=== PATIENT | male | born 1980 | race Caucasian/White ===

== ENCOUNTER 2017-04-05 19:04 | Emergency (ER) | payer SELFPAY ==
[~2017-04-05] VITALS: Ht 177.8 cm; Wt 92.5 kg
[2017-04-05 19:28] VITALS: Ht 177.8 cm; Wt 92.5 kg
--- NOTE | 2017-04-05 22:59 | ERD ---
ER Documentation Chief Complaint Date/Time DATE: 04/05/17 TIME: 22:55 Chief Complaint c/o left sided groin and abdominal pain x 2 yrs. HPI This 36-year-old male patient presents to emergency department for chronic left testicle pain radiating to left ABD x 2 years. pt has seen MD in the past, has a US which was normal per patient's report. Complaint of dysuria and hematuria was seen at a clinic a month ago found hematuria at that time, received ABX, took full course of medication x 7 days 4 weeks ago. sexually activity on partner ROS All systems reviewed and are negative except as per history of present illness. PMhx/Soc Medical and Surgical Hx: pt denies Surgical Hx Hx Miscellaneous Medical Probl: Yes (Thyroid) Hx Alcohol Use: No Hx Substance Use: No Hx Tobacco Use: Yes Smoking Status: Current every day smoker Physical Exam Vitals Vital Signs Date Time Temp Pulse Resp B/P Pulse Ox O2 Delivery O2 Flow Rate FiO2 04/05/17 19:28 98.7 84 18 140/83 95 Vitals stable, triage notes reviewed Physical Exam Const: Well-nourished well-hydrated well-appearing 36-year-old male patient no acute distress Head: Eyes: ENT: Normal External Ears, Nose and Mouth, mucous membranes moist Neck: Resp: Traces even and unlabored, no respiratory distress Cardio: Abd: ,soft, left lower abdominal tenderness, proximal to pelvis on Male Genitalia: Normal appearing uncircumcised penis without lesion, discharge , or ulcers, testicles descended, right testicle tender to palpation with no palpable mass, left testicle with suspected fluid, nontender no mass. Skin: Back: No midline or flank tenderness, no CVA tenderness Ext: Neur: Awake and alert Psych: Normal Mood and Affect Results 24 hrs Laboratory Tests Test 04/05/17 23:33 Urine Color YELLOW Urine Clarity CLEAR Urine pH 5.0 Urine Specific [place] 1.029 Urine Ketones TRACEmg/dL Urine Nitrite NEGATIVEmg/dL Urine Bilirubin NEGATIVEmg/dL Urine Urobilinogen NEGATIVEmg/dL Urine Leukocyte Esterase NEGATIVELeu/ul Urine Hemoglobin NEGATIVEmg/dL Urine Glucose NEGATIVEmg/dL Urine Total Protein NEGATIVEmg/dl Current Medications Medications (Trade) Dose Ordered Sig/Hood Route PRN Reason Start Time Stop Time Status Last Admin Dose Admin Ibuprofen (Motrin) 600 mg ONCE ONCE PO 04/05/17 23:30 04/05/17 23:31 DC 04/05/17 23:32 Urinalysis negative for evidence of infection, no leukocytosis, microscopic hematuria, or nitrates Procedures/MDM PROCEDURE: Ultrasound of the scrotum. CLINICAL INDICATION: Pain. TECHNIQUE: Ultrasound of the scrotum was performed utilizing color Doppler flow imaging COMPARISON: There are no similar studies submitted for comparison. FINDINGS: Right testis: Size (cm): 4.3 x 2.2 x 3.2 Echotexture: Normal Doppler flow: Present Epididymal head: Unremarkable Hydrocele: None Varicocele: None Left testis: Size (cm): 4.2 x 2.3 x 3 Echotexture: Normal Doppler flow: Present Epididymal head: Unremarkable Hydrocele: None Varicocele: None IMPRESSION: No evidence of testicular torsion. RPTAT: HIKT .Gene Waggoner MD, MD Date Time Electronically viewed and signed by .Geen Waggoner MD, on 04/06/2017 00:34 This 36-year-old male patient presents to emergency department for evaluation of chronic right testicular pain radiating up into the stomach. Patient has been seen in the past, has obtain ultrasounds and been treated with no improvement of symptoms. Patient reports his last antibiotics was chasing twice a day for 7 days given to him from a clinic with no improvement of symptoms. Patient denies any injury, reports that he is sexually active with one partner. Denies any penile discharge, sores or lesions. Emergency room course today includes history, physical exam, urinalysis, and testicular ultrasound; radiology findings no evidence of testicular torsion, hydrocele or varicocele, plan to discharge patient home with Bactrim 1 tab p.o. twice daily 7 days, Naprosyn 500 mg 1 tab p.o. twice daily 10 days, rest, testicular elevation, follow-up with [facility] care physician for referral to urology or call any of the urologist listed on handout. Patient is stable with no new complaints during ER course, clinically there is no current evidence to suggest STI, sepsis, acute abdomen, testicular torsion, idiopathic scrotal edema, infected hydrocele, strangulated hernia, testicular tumor or any other emergent condition appearing to require further evaluation or hospitalization. I feel the patient is stable for discharge at this time. I have discussed results, examination findings, the treatment plan with the patient and family present prior to discharge. Indications for emergent reevaluation, side effects of medication were also discussed. All questions were answered. Patient verbalizes understanding and agrees with plan of care. Departure Diagnosis: Primary Impression: Pain in testicle Condition: Good Patient Instructions: Treating Epididymitis and Orchitis, What Are Epididymitis and Orchitis? Referrals: RYAN MICHAEL MD,JIMI SCHUSTER,LOBO ALANIZ,ROMAN WEISS,NATHAN RUFFIN= OCTAVIO DE LA TORRE NP, SOROUSH ADAM SHAPIRO,CALVIN PIERSON MD, M.D. Additional Instructions: Thank you for for coming to [facility] for your care today. Please ask your nurse or provider if you have questions about your care today and do not leave until all your questions have been answered. Please use any medications given as directed and follow-up with your doctor (or the doctor you were referred to) in the next 2-3 days. If you do not have a primary care doctor you may follow up at the [facility] (listed below). You may also use motrin and tylenol as needed for fever and/or pain unless instructed otherwise by your provider or nurse. Indications for more urgent follow-up have been discussed, but you may return to the Emergency Department at ANY time for any worrisome or worsening symptoms. If you have abdominal pain, please know that no test or exam you received is perfect and you should follow up within 8 hours for continued pain. If you had any imaging studies today, such as an X-Ray or CT Scan, these studies will be reviewed later by a radiologist. You will be called if there are important findings that were not identified today, so make sure the contact information you provided at registration is correct. If you received any narcotic pain control medicine today, such as Vicodin, Morphine or Dilaudid, your coordination and judgment may be affected for a number of hours. Please do not drive or operate heavy machinery, and you may want someone to assist you at home. If you were given a prescription for narcotic medication, be aware that it is very addictive- use sparingly and only if necessary. ROGER VELÁZQUEZ Apr 05, 2017 22:59
[2017-04-05] MEDS ORDERED: IBUPROFEN 600 MG TAB PO ONE (23:30)
[2017-04-05 23:56] LABS: ADD UMIC NO; UR ASCORBIC ACID 40 mg/dL (NEGATIVE); UR BILIRUBIN (Dip) NEGATIVE (NEGATIVE); UR BLOOD (Dip) NEGATIVE (NEGATIVE); UR CLARITY CLEAR (CLEAR); UR COLOR YELLOW (YELLOW); UR GLUCOSE (Dip) NEGATIVE (NEGATIVE); UR KETONES (Dip) TRACE mg/dL (NEGATIVE); UR LEUKOCYTE ESTERASE (Dip) NEGATIVE Leu/ul (NEGATIVE); UR NITRITE (Dip) NEGATIVE (NEGATIVE); UR SPECIFIC GRAVITY (Dip) 1.029 (1.003-1.030); UR TOTAL PROTEIN (Dip) NEGATIVE (NEGATIVE); UR UROBILINOGEN (Dip) NEGATIVE (NEGATIVE)
--- NOTE | 2017-04-06 00:34 | RADRPT ---
PROCEDURE: Ultrasound of the scrotum. CLINICAL INDICATION: Pain. TECHNIQUE: Ultrasound of the scrotum was performed utilizing color Doppler flow imaging COMPARISON: There are no similar studies submitted for comparison. FINDINGS: Right testis: Size (cm): 4.3 x 2.2 x 3.2 Echotexture: Normal Doppler flow: Present Epididymal head: Unremarkable Hydrocele: None Varicocele: None Left testis: Size (cm): 4.2 x 2.3 x 3 Echotexture: Normal Doppler flow: Present Epididymal head: Unremarkable Hydrocele: None Varicocele: None IMPRESSION: No evidence of testicular torsion. RPTAT: HIKT .Gene Waggoner MD, MD Date Time Electronically viewed and signed by .Gene Waggoner MD, on 04/06/2017 00:34 .T/
[2017-04-06] MEDS ORDERED: NAPR-260 PO (03:00)
[2017-04-06] MEDS ORDERED: SULF1TAB31 PO (03:00)
[2017-04-06 03:19] VITALS: BP 124/79; PULSE 55; RESP 16
== END 2017-04-06 03:20 | disposition home or self-care (01) ==
LOC: FTE 19:04
DX: N50.812 Left testicular pain (principal); F17.210 Nicotine dependence, cigarettes, uncomplicated
CPT/HCPCS: 76870; 81003; 87591

== ENCOUNTER 2017-05-13 13:31 | Emergency (ER) | payer SELFPAY ==
[~2017-05-13] VITALS: Ht 170.2 cm; Wt 91.5 kg
[~2017-05-13 13:31] MED LIST: NAPR-260 PO; SULF1TAB31 PO
[2017-05-13 13:38] VITALS: Ht 170.2 cm; Wt 91.5 kg
[2017-05-13] MEDS ORDERED: HYDROCODONE/APAP (5/325) TAB PO ONE (17:00)
[2017-05-13 17:22] LABS: ADD UMIC YES; UR ASCORBIC ACID 20 mg/dL (NEGATIVE); UR BILIRUBIN (Dip) NEGATIVE (NEGATIVE); UR BLOOD (Dip) 1+ mg/dL (NEGATIVE); UR CLARITY SLIGHTLY CLOUDY (CLEAR); UR COLOR YELLOW (YELLOW); UR GLUCOSE (Dip) NEGATIVE (NEGATIVE); UR KETONES (Dip) NEGATIVE (NEGATIVE); UR LEUKOCYTE ESTERASE (Dip) NEGATIVE Leu/ul (NEGATIVE); UR MUCUS FEW /HPF (NONE SEEN); UR NITRITE (Dip) NEGATIVE (NEGATIVE); UR RBC 8 /HPF (0-5); UR SPECIFIC GRAVITY (Dip) 1.026 (1.003-1.030); UR TOTAL PROTEIN (Dip) NEGATIVE (NEGATIVE); UR UROBILINOGEN (Dip) NEGATIVE (NEGATIVE)
--- NOTE | 2017-05-13 17:50 | RADRPT ---
PROCEDURE: CT Abdomen and Pelvis without contrast. CLINICAL INDICATION: Abdominal pain TECHNIQUE: CT scan of the abdomen and pelvis was performed on a multidetector high-resolution CT s canner without intravenous contrast. Coronal and sagittal reformatted images were obtained from the axial source images. Images were reviewed on a high-resolution PACS workstation. The total exam CTD I equals 13mGy and the total exam DLP equals 901mGy-cm. One or more of the following dose reduction techniques were used: Automated exposure control, Adjustment of the mA and/or kV according to patien t size, and/or use of iterative reconstruction technique. DICOM images are available. COMPARISON: None. FINDINGS: Evaluation of the solid organs is limited given the lack of intravenous contrast administration. The lung bases are clear. The liver, pancreas, spleen, and adrenals are grossly unremarkable. No focal pericholecystic inflammatory changes. No hydronephrosis. No renal or ureteral stone. No bowel obstruction. Normal-caliber appendix. Colonic diverticula with sravanthi-sigmoid colon inflamm atory stranding. No significant retroperitoneal lymphadenopathy, ascites or evidence of pneumoperitoneum. Small fat c ontaining left inguinal hernia. IMPRESSION: Acute sigmoid colonic diverticulitis. No renal or ureteral stone. Normal-caliber appendix. No evidence of bowel obstruction. RPTAT: AA .Zackery Chavez MD, Date Time Electronically viewed and signed by .Zackery Chavez MD, on 05/13/2017 17:50 .T/
--- NOTE | 2017-05-13 17:55 | RADRPT ---
PROCEDURE: US Scrotum. CLINICAL INDICATION: Bilateral chronic testicular pain TECHNIQUE: Multiple sonographic images of the scrotal region were obtained with grayscale, color-fl ow, and Doppler imaging COMPARISON: Scrotal sonogram 04/05/2017 FINDINGS: Physiologic amount of fluid surrounds both testicles. The right testicle measures 4.0 x 2.2 x 3.2 cm; the left testicle measures 4.3 x 2.1 x 2.9 cm. The testicles are within normal limits in size, have unremarkable echogenicity, and are located in the s crotum. Intratesticular blood flow is within normal limits. The epididymal complexes are unremarkable. No varicocele detected. The scrotal wall is unremarkable. No other significant changes seen. IMPRESSION: 1. Unremarkable scrotal sonogram. Given the clinical history, intermittent testicular torsion is in the differential diagnosis. RPTAT: TT Physician Daron Date Time Electronically viewed and signed by Physician Daron on 05/13/2017 17:55 RADHA/
--- NOTE | 2017-05-13 18:04 | ERD ---
ER Documentation Chief Complaint Chief Complaint llq abdominal pain radiating to the groin with painfull urination HPI This is a 36-year-old male who presents the emergency department today complaining of left-sided abdominal pain and pain with urination for the past 15 days. Patient states that he takes Flomax for the pain and it resolves her period of time and then it comes back. States he has had similar problems in the past and had taken antibiotics for "an infection in his urine". Denies any fevers or chills, vomiting. ROS All systems reviewed and are negative except as per history of present illness. Medications Home Meds Active Scripts Docusate Sodium* (Colace*) 100 Mg Capsule, 100 MG PO TID, #30 CAP Prov:MEGHAN HINOJOSA PA-C 05/13/17 Polyethylene Glycol* (Miralax*) 17 Gm Powd.pack, 17 GM PO DAILY, #14 Prov:MEGHAN HINOJOSA PA-C 05/13/17 Metronidazole* (Flagyl*) 500 Mg Tablet, 500 MG PO TID for 10 Days, TAB Prov:MEGHAN HINOJOSA PA-C 05/13/17 Ciprofloxacin Hcl* (Ciprofloxacin Hcl*) 500 Mg Tablet, 500 MG PO BID for 10 Days , TAB Prov:MEGHAN HINOJOSA PA-C 05/13/17 Naproxen* (Naprosyn*) 500 Mg Tablet, 500 MG PO BID Y for PAIN AND/OR INFLAMMATION, #30 TAB Prov:MEGHAN HINOJOSA PA-C 05/13/17 Tramadol HCl (Tramadol HCl) 50 Mg Tablet, 50 MG PO Q4 Y for PAIN, #20 TAB Prov:MEGHAN HINOJOSA PA-C 05/13/17 Naproxen* (Naprosyn*) 500 Mg Tablet, 500 MG PO BID Y for PAIN AND/OR INFLAMMATION for 10 Days, #20 TAB Prov:EBER,ROGER 04/06/17 Sulfamethoxazole/Trimethoprim* (Bactrim Ds* Tablet) 1 Each Tablet, 1 TAB PO BID for 7 Days, #14 TAB Prov:EBER,ROGER 04/06/17 Allergies Allergies: Coded Allergies: No Known Allergy (Unverified , 05/13/17) PMhx/Soc Hx Miscellaneous Medical Probl: Yes (Thyroid) Hx Alcohol Use: No Hx Substance Use: No Hx Tobacco Use: Yes Physical Exam Vitals Vital Signs Date Time Temp Pulse Resp B/P Pulse Ox O2 Delivery O2 Flow Rate FiO2 05/13/17 13:38 99.2 100 18 131/86 97 Physical Exam Const: NAD Head: Atraumatic Eyes: Normal Conjunctiva ENT: Normal External Ears, Nose and Mouth. Neck: Full range of motion..~ No meningismus. Resp: Clear to auscultation bilaterally Cardio: Regular rate and rhythm, no murmurs Abd: Soft,left lower quadraunt tenderness non distended. Normal bowel sounds. No tenderness to McBurney's Gu: Testicles descended bilaterally. Mild tenderness bilaterally to palpation. Uncircumcised penis with no purulent drainage, lesions. Skin: No petechiae or rashes Back: No midline or flank tenderness Ext: No cyanosis, or edema Neur: Awake and alert Psych: Normal Mood and Affect Results 24 hrs Laboratory Tests Test 05/13/17 16:55 Urine Color YELLOW Urine Clarity SLIGHTLY CLOUDY Urine pH 6.0 Urine Specific [place] 1.026 Urine Ketones NEGATIVEmg/dL Urine Nitrite NEGATIVEmg/dL Urine Bilirubin NEGATIVEmg/dL Urine Urobilinogen NEGATIVEmg/dL Urine Leukocyte Esterase NEGATIVELeu/ul Urine Microscopic RBC 8/HPF Urine Microscopic WBC 0/HPF Urine Mucus FEW/HPF Urine Hemoglobin 1+mg/dL Urine Glucose NEGATIVEmg/dL Urine Total Protein NEGATIVEmg/dl Current Medications Medications (Trade) Dose Ordered Sig/Hood Route PRN Reason Start Time Stop Time Status Last Admin Dose Admin Acetaminophen/ Hydrocodone Bitart ([place] (5/325)) 1 tab ONCE ONCE PO 05/13/17 17:00 05/13/17 17:01 DC 05/13/17 17:33 DIAGNOSTIC IMAGING REPORT Patient: PH[place]EN[place] DC : 1980 Age: 36 Sex: M MR #: [id number] DOS: 05/13/17 1645 Ordering MD: MEGHAN HINOJOSA PA-C Location: E Room/Bed: PROCEDURE: CT Abdomen and Pelvis without contrast. CLINICAL INDICATION: Abdominal pain TECHNIQUE: CT scan of the abdomen and pelvis was performed on a multidetector high-resolution CT scanner without intravenous contrast. Coronal and sagittal reformatted images were obtained from the axial source images. Images were reviewed on a high-resolution PACS workstation. The total exam CTDI equals 13mGy and the total exam DLP equals 901mGy-cm. One or more of the following dose reduction techniques were used: Automated exposure control, Adjustment of the mA and/or kV according to patient size, and/or use of iterative reconstruction technique. DICOM images are available. COMPARISON: None. FINDINGS: Evaluation of the solid organs is limited given the lack of intravenous contrast administration. The lung bases are clear. The liver, pancreas, spleen, and adrenals are grossly unremarkable. No focal pericholecystic inflammatory changes. No hydronephrosis. No renal or ureteral stone. No bowel obstruction. Normal-caliber appendix. Colonic diverticula with sravanthi- sigmoid colon inflammatory stranding. No significant retroperitoneal lymphadenopathy, ascites or evidence of pneumoperitoneum. Small fat containing left inguinal hernia. IMPRESSION: Acute sigmoid colonic diverticulitis. No renal or ureteral stone. Normal-caliber appendix. No evidence of bowel obstruction. RPTAT: AA .Zackery Chavez MD MD Date Time Electronically viewed and signed by .Zackery Chavez MD, on 05/13/2017 17:50 .T/ CC: MEGHAN HINOJOSA PA-C DIAGNOSTIC IMAGING REPORT Patient: PH[place]EN[place] DC : 1980 Age: 36 Sex: M MR #: [id number] DOS: 05/13/17 0000 Ordering MD: MEGHAN HINOJOSA PA-C Location: FTE Room/Bed: PROCEDURE: US Scrotum. CLINICAL INDICATION: Bilateral chronic testicular pain TECHNIQUE: Multiple sonographic images of the scrotal region were obtained with grayscale, color-flow, and Doppler imaging COMPARISON: Scrotal sonogram 04/05/2017 FINDINGS: Physiologic amount of fluid surrounds both testicles. The right testicle measures 4.0 x 2.2 x 3.2 cm; the left testicle measures 4.3 x 2.1 x 2.9 cm. The testicles are within normal limits in size, have unremarkable echogenicity, and are located in the scrotum. Intratesticular blood flow is within normal limits. The epididymal complexes are unremarkable. No varicocele detected. The scrotal wall is unremarkable. No other significant changes seen. IMPRESSION: 1. Unremarkable scrotal sonogram. Given the clinical history, intermittent testicular torsion is in the differential diagnosis. RPTAT: TT Courtney Mendez Physician Date Time Electronically viewed and signed by Courtney Mendez Physician on 2016 17:55 JS/ CC: MEGHAN HINOJOSA PA-C Procedures/[facility] This a 36-year-old male who presents the emergency department today complaining of left-sided abdominal pain for the past 15 days and pain with urination and mild testicular pain. Upon review of patient's medical records patient was seen here April 05, 2017 for the same exact complaints. Patient had a negative testicular ultrasound at that time and his UA was negative at that time. Patient had been instructed to follow-up with the urology specialist and he did not do this. I questioned patient further and he did endorse having constipation although he did indicate he had a bowel movement earlier this morning. Given patients complaints I did obtain a UA and CT abdomen pelvis UA 8 microscopic red blood cells. Negative leukocyte esterase negative nitrates. 1+ hemoglobin. testicular US is unremarkable. There is no varicocele or evidence of epididymitis. Testicular blood flow is within normal limits however given clinical history intermittent testicular torsion as differential diagnosis CT Abdomen pelvis noncontrast shows acute sigmoid colonic diverticulitis. There is no bowel obstruction. There is no significant lymphadenopathy, ascites or evidence of pneumoperitoneum. There is a small fat-containing left inguinal hernia. Patient was given [place] here in the emergency department reported pain improved. Patient was walking around the emergency department in no acute distress. I discussed the CT findings with Dr Maier and I had asked him if he felt that laboratory workup was necessary at this time given patient's CT findings does not feel that it is necessary given that patient is afebrile and otherwise well-appearing. Vital signs are stable. He does not appear to be in any acute distress. Low suspicion for perforation. Symptoms at this time is consistent with diverticulitis and dysuria of uncertain etiology. Patient given a prescription for tramadol, Naprosyn, Cipro , Flagyl, MiraLAX and Colace. He was instructed to follow-up with the urology specialist for his dysuria. Patient was given a list of resources again. Understood At this time the patient is stable for discharge and outpatient management. Patient should follow up with their PCP in the next 1-2 days. They may return to the emergency department sooner for any persistent or worsening of symptoms. Patient understood and agreed with the plan.. Departure Diagnosis: Primary Impression: Diverticulitis Additional Impression: Dysuria Condition: MEGHAN Hernández PA-C May 13, 2017 18:04
[2017-05-13] MEDS ORDERED: NAPR-260 PO (18:17)
[2017-05-13] MEDS ORDERED: TRAM50TA2 PO (18:17)
[2017-05-13] MEDS ORDERED: CIPR500T4 PO (18:17)
[2017-05-13] MEDS ORDERED: METR500T PO (18:18)
[2017-05-13] MEDS ORDERED: POLY17PO6 PO (18:18)
[2017-05-13] MEDS ORDERED: DOCU-144 PO (18:19)
[2017-05-13 18:52] VITALS: BP 135/84; PULSE 64; RESP 18; TEMP 98.4
== END 2017-05-13 18:54 | disposition home or self-care (01) ==
LOC: FTE 13:31
DX: K57.32 Diverticulitis of large intestine without perforation or abscess without bleeding (principal); R30.0 Dysuria
CPT/HCPCS: 74176; 76870; 81001; 87591

== ENCOUNTER 2017-07-04 18:19 | Emergency (ER) | END 2017-07-04 23:43 | disposition home or self-care (01) ==

== ENCOUNTER 2017-07-07 06:23 | Emergency (ER) | END 2017-07-07 07:23 | disposition home or self-care (01) ==

== ENCOUNTER 2017-07-13 06:02 | Emergency (ER) | END 2017-07-13 08:22 | disposition home or self-care (01) ==